=== PATIENT | female | born 2000 | race American Indian/Alaskan Native ===

== ENCOUNTER 2020-10-23 07:35 | Emergency (ER) | payer SELFPAY ==
[2020-10-23 08:17] VITALS: BP 131/83
[2020-10-23] MEDS ORDERED: LIDOCAINE-MPF (1%) 10 MG/1 ML VIAL 5 ML INFILTRATI ONE (08:49)
[2020-10-23] MEDS ORDERED: AZITHROMYCIN 250 MG TAB PO ONE (08:49)
[2020-10-23] MEDS ORDERED: ONDANSETRON 4 MG ODT TAB PO ONE (08:50)
--- NOTE | 2020-10-23 08:52 | Emergency Department Report ---
ED Female HPI - General Chief complaint: Urogenital-Female Stated complaint: STD PAIN Time Seen by Provider: 10/23/20 08:47 Source: patient Mode of arrival: Ambulatory Limitations: No Limitations - History of Present Illness Initial comments: 20 year old female with past medical history of asthma. Presents to ED requesting tx for trichomonas. Patient states that her partner told her a week ago that he was positive for trichomonas. She states that she did not believe them at first until he showed me the paperwork about 2 days ago. She states th at she has been having symptoms of pelvic pain, vaginal discharge, and intermittent nausea and vomiting for about 1 to 2 months but did not go get checked until her partner told her he was positive for trichomonas. She states her last menstrual cycle was September 18. She is not on any control. She denies concern for . She states she has not had any sexual intercourse with her partner since she found out that he was positive for trichomonas. MD Complaint: vaginal discharge, pelvic pain, possible STD -: month(s) (1-2 mths ) - Related Data Home Medications Medication Instructions Recorded Confirmed Last Taken Pnv Plus Multivit Tab 1 tab PO DAILY 11/09/15 11/09/15 Unknown Previous Rx's Medication Instructions Recorded Last Taken Type metroNIDAZOLE [Flagyl] 500 mg PO Q12HR #14 tab 10/23/20 Unknown Rx Allergies Allergy/AdvReac Type Severity Reaction Status Date / Time No Known Allergies Allergy Verified 09/30/15 13:28 ED Review of Systems ROS: Stated complaint: STD PAIN Other details as noted in HPI Comment: All other systems reviewed and negative Constitutional: denies: chills, fever Eyes: denies: eye pain, eye discharge, vision change Respiratory: denies: cough, shortness of breath, wheezing Cardiovascular: denies: chest pain, palpitations Gastrointestinal: abdominal pain, nausea, vomiting Genitourinary: discharge. denies: urgency, dysuria, frequency, hematuria, abnormal menses Musculoskeletal: denies: back pain, joint swelling, arthralgia Skin: denies: rash, lesions Neurological: denies: headache, weakness, paresthesias Psychiatric: denies: anxiety, depression Hematological/Lymphatic: denies: easy bleeding, easy bruising ED Past Medical Hx - Past Medical History Previous Medical History?: Yes Hx Hypertension: No Hx Congestive Heart Failure: No Hx Diabetes: No Hx Deep Vein Thrombosis: No Hx Renal Disease: No Hx Sickle Cell Disease: No Hx Seizures: No Hx Asthma: Yes (last attack 2 weeks ago, inhaler used) Hx COPD: No - Surgical History Past Surgical History?: No - Social History Smoking Status: Light Tobacco Smoker - Medications Home Medications: Home Medications Medication Instructions Recorded Confirmed Last Taken Type Pnv Plus Multivit Tab 1 tab PO DAILY 11/09/15 11/09/15 Unknown History metroNIDAZOLE [Flagyl] 500 mg PO Q12HR #14 tab 10/23/20 Unknown Rx ED Physical Exam - General Limitations: No Limitations General appearance: alert, in no apparent distress - Head Head exam: Present: atraumatic, normocephalic, normal inspection - Eye Eye exam: Present: normal appearance, PERRL, EOMI Pupils: Present: normal accommodation - ENT ENT exam: Present: normal exam, mucous membranes moist - Respiratory Respiratory exam: Present: normal lung sounds bilaterally. Absent: respiratory distress - Cardiovascular Cardiovascular Exam: Present: regular rate, normal rhythm, normal heart sounds - GI/Abdominal GI/Abdominal exam: Present: soft. Absent: distended, tenderness - Extremities Exam Extremities exam: Present: normal inspection, full ROM - Neurological Exam Neurological exam: Present: alert, oriented X3, CN II-XII intact - Psychiatric Psychiatric exam: Present: normal affect, normal mood - Skin Skin exam: Present: intact ED Course Vital Signs 10/23/20 08:16 Temperature 98.1 F Pulse Rate 100 H Respiratory 18 Rate Blood Pressure 131/83 [Left] O2 Sat by Pulse 100 Oximetry ED Medical Decision Making - Medical Decision Making 20-year-old female presents to the ER requesting treatment for trichomonas. Patient states that his partner told her he was positive for trichomonas a week ago. She states she has been having symptoms of vaginal discharge, lower abdo venancio/pelvic pain, and intermittent nausea and vomiting for about 1 to 2 months but had not getting checked out until her significant other told her that he was positive for treatment and so she decided on get treated today. Patient is well-appearing, nontoxic, does not appear to be in any acute distress. Her vital signs are normal. She has a soft nontender abdomen. Urine negative. UA unremarkable. Patient treated prophylactically for gonorrhea and chlamydia as well as she will be treated for her trichomonas. Discussed discharge instructions and treatment plan with patient. Patient agrees with plan. Patient stable at time of discharge. Critical care attestation.: If time is entered above; I have spent that time in minutes in the direct care of this critically ill patient, excluding procedure time. ED Disposition Clinical Impression: Exposure to trichomonas Disposition: DC-01 TO HOME OR SELFCARE Is pt being admited?: No Does the pt Need Aspirin: No Condition: Stable Instructions: Trichomoniasis, Preventing Sexually Transmitted Infections, Adult Additional Instructions: I recommend no sexual contact for 7 days. Take and complete the Flagyl as prescribed. Do not drink alcohol while taking the Flagyl. You can take tylenol or motrin for pain. Follow up with PCP. return to ED if symptoms changes or worsens. Prescriptions: metroNIDAZOLE [Flagyl] 500 mg PO Q12HR #14 tab Referrals: TYRON COLIN MD [Staff Physician] - 3-5 Days Time of Disposition: 10:04
[2020-10-23 09:45] LABS: HCG Qualitative,Urine Negative (Negative)
[2020-10-23 09:47] LABS: Bilirubin,Urine NEG (Negative); Blood,Urine NEG (Negative); Color,Urine Yellow (Yellow); Mucus,Urine FEW /HPF; Protein,Urine <15 mg/dL mg/dL (Negative); Urobilinogen,Urine < 2.0 mg/dL (<2.0)
== END 2020-10-23 10:39 | disposition home or self-care (01) ==
LOC: ED 07:35
DX: N89.8 Other specified noninflammatory disorders of vagina (principal); R10.2 Pelvic and perineal pain; Z20.2 Contact with and (suspected) exposure to infections with a predominantly sexual mode of transmission; J45.909 Unspecified asthma, uncomplicated; F17.200 Nicotine dependence, unspecified, uncomplicated; Z79.899 Other long term (current) drug therapy
CPT/HCPCS: 81001; 81025; 96372; 99283; J0696; Q0162